=== PATIENT | male | born 1990 | race Caucasian/White ===

== ENCOUNTER 2017-11-15 04:02 | Emergency (ER) | payer OTHER ==
[~2017-11-15] VITALS: Ht 172.7 cm; Wt 75.0 kg
[2017-11-15] MEDS ORDERED: SODIUM CHLORIDE 0.9% FLUSH 10 ML FLUSH IV FLUSH PRN (04:15)
[2017-11-15] MEDS ORDERED: SODIUM CHLOR 0.9% 1000 ML INJ 1,000 ML IV ONE ×2 (04:15)
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
[2017-11-15 04:26] VITALS: BP 135/66; PULSE 76; RESP 16; O2SAT 97
[2017-11-15 04:48] LABS: AUTOMATED NEUTROPHIL # 5.3 TH/MM3 (1.8-7.7); BASOPHIL % 0.5 % (0.0-2.0); EOSINOPHIL # 0.3 TH/MM3 (0-0.4); EOSINOPHIL % 3.7 % (0.0-4.0); HEMATOCRIT 42.8 % (39.0-51.0); LYMPH % 29.3 % (9.0-44.0); LYMPHOCYTE # 2.7 TH/MM3 (1.0-4.8); MEAN CELL VOLUME 89.6 FL (80.0-100.0); MEAN CORPUSCULAR HEMOGLOBIN 31.4 PG (27.0-34.0); MEAN CORPUSCULAR HGB CONC 35.1 % (32.0-36.0); MEAN PLATELET VOLUME 9.3 FL (7.0-11.0); MONO % 9.6 % (0.0-8.0); MONOCYTE # 0.9 TH/MM3 (0-0.9); NEUT % 56.9 % (16.0-70.0); PLATELET COUNT 222 TH/MM3 (150-450); RED BLOOD COUNT 4.78 MIL/MM3 (4.50-5.90); RED CELL DISTRIBUTION WIDTH 13.2 % (11.6-17.2); WHITE BLOOD COUNT 9.4 TH/MM3 (4.0-11.0)
[2017-11-15 05:08] LABS: BICARBONATE 25.4 MEQ/L (21.0-32.0); CALCIUM 8.3 MG/DL (8.5-10.1); CREATININE 1.02 MG/DL (0.60-1.30)
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
[2017-11-15] MEDS ORDERED: POTASSIUM CHLORIDE 20 MEQ CONTROLLED RELEASE TAB PO ONE (05:45)
[2017-11-15 07:07] VITALS: BP 127/67; PULSE 74; RESP 14; O2SAT 99
== END 2017-11-15 16:37 | disposition home or self-care (01) ==
LOC: NEPD 04:02
DX: F10.929 Alcohol use, unspecified with intoxication, unspecified (principal); S01.81XA Laceration without foreign body of other part of head, initial encounter; W03.XXXA Other fall on same level due to collision with another person, initial encounter; Y93.02 Activity, running; Y92.832 Beach as the place of occurrence of the external cause; Y90.8 Blood alcohol level of 240 mg/100 ml or more
CPT/HCPCS: 12011; 70450; 72125; 80048; 80307; 82550; 82552; 85025; 96360; 99284; J7030